=== PATIENT | female | born 1950 | race Caucasian/White ===

== ENCOUNTER 2017-01-19 11:59 | Inpatient (IN) | payer OTHER ==
[2017-01-15 10:22] LABS: HEMATOCRIT 40.8 % (36.0-48.0); HEMOGLOBIN 13.5 g/dL (12.0-16.0)
[2017-01-15 10:35] LABS: BUN (BLOOD UREA NITROGEN) 13 MG/DL (6-23); CALCIUM, SERUM 10.5 MG/DL (8.5-10.4); CHLORIDE, SERUM 105 MMOL/L (96-112); CO2 (CARBON DIOXIDE) 29 MMOL/L (24-34); CREATININE 1.06 MG/DL (0.55-1.02); GFR AFRICAN AMERICAN 62 ML/MIN (>=60); GFR NON AFRICAN AMERICAN 54 ML/MIN (>=60); GLUCOSE, SERUM 105 MG/DL (60-99); POTASSIUM, SERUM 3.6 MMOL/L (3.5-5.3); SODIUM, SERUM 141 MMOL/L (135-148)
--- NOTE | ~2017-01-19 | OP ---
Record Of Operation [facility] [address] [place]. 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 POSTOPERATIVE DIAGNOSIS: Goblet cell carcinoid of the appendix. PROCEDURE: Laparoscopic right colectomy. RESIDENT: Jazmyne. ANESTHESIA: General. ESTIMATED BLOOD LOSS: Less than 50 mL. INDICATION: The patient is a 66-year-old female who presents with a perforated appendicitis and found to have a goblet cell carcinoid and therefore right colectomy was recommended. The risks including bleeding, infection, heart and lung complications, damage to adjacent organs, DVT, anastomotic leak, abdominal wall complications and recuperation among others were discussed with her, and she agreed to proceed. DESCRIPTION OF PROCEDURE: The patient was taken to the operating room and placed in supine position. General anesthesia was induced. The abdomen was prepped and draped. A small incision was made in the umbilicus. A Priyank technique was utilized to place a 12 mm trocar under direct vision initially at right lower quadrant. A 5 mm trocar was placed and this was switched over to the epigastric area and also left lateral and suprapubic 5 mm trocars were placed. The abdomen was evaluated and there was no evidence for metastasis, and the cecum was mobilized identifying the duodenum and then the hepatic flexure was mobilized with cautery. The ileocolic vessel was then isolated and divided between clips and then a wound protector was placed through a small enlargement of the umbilical port site, and the specimen was brought out of that site and additional mesentery was clamped, divided, and ligated towards the terminal ileum and the transverse colon. I then isolated the area with towels and placed a CINDY stapler across the transverse colon. This was fired and I have made a colotomy at the tenia and also enterotomy on the antimesenteric border and a CINDY-75 stapler was placed and fired. The staple lines were offset and an another CINDY stapler was placed and fired to complete the anastomosis. Intersection of staple lines and the crotch was imbricated using 3-0 silk. The gloves and instruments were changed and the area was irrigated and the anastomosis was placed back into the abdominal cavity and the fascial incision was closed with running 0 PDS. Skin was closed with 3-0 Vicryl and the umbilical site was packed with gauze. Dressings were applied. Counts correct. She tolerated the procedure well. RAVI/MITA Record Of [address] [address] NAME: MONSERRAT BRIZUELA : 46 STATUS : ADM IN PAT#: [id number] AGE: 66 ADM/REG DATE : 01/19/17 MR#: [id number] REPORT SERV DATE: 01/19/17 DICTATED BY: ZAMZAM JIANG DATE: 01/19/17 REPORT STATUS : Draft TRANSCRIBED BY: MITA DATE: 01/19/17 Neelam Jiang M.D. / [id number] CC: Neelam Jiang M.D.
--- NOTE | ~2017-01-19 | DS ---
Discharge Summary [facility] [address] [place]. [address] NAME: MONSERRAT BRIZUELA : 46 STATUS : DIS IN PAT#: [id number] AGE: 66 ADM/REG DATE : 01/19/17 MR#: [id number] REPORT SERV DATE: 01/31/17 DICTATED BY: ZAMZAM JIANG DATE: 01/30/17 REPORT STATUS : Draft TRANSCRIBED BY: MODL DATE: 01/30/17 Data Collection from hospitalization DISCHARGE DIAGNOSES: 1. Goblet cell carcinoid of the appendix. 2. Hypertension. 3. Tobacco use. 4. Arthritis. 5. History of right colon cancer. CONSULTATIONS: None. PROCEDURES PERFORMED: Laparoscopic right colectomy, 01/19/2017. PATHOLOGY: Right colon resection-status post appendectomy. No residual goblet cell carcinoid identified. Mesenteric lymph nodes (23)-no metastasis identified. AJCC stage groupings- (by outside report) . DISCHARGE MEDICATIONS: Tylenol 500 mg every six hours as needed, Fosamax 70 mg every seven days, hydrochlorothiazide 25 mg every morning, Sterling 5/325 one tablet every six hours as needed, milk of magnesia 30 mL daily as needed, Percocet 5/325 one tablet every four hours as needed, eye drops twice a day as instructed. CONDITION AT DISCHARGE: Stable. DISPOSITION: The patient was discharged home on a regular diet with activities as instructed. She would follow up with me, 02/02/2017. HOSPITAL COURSE: This is a 66-year-old female, who presented with a perforated appendicitis and was found to have goblet cell carcinoid and therefore, right colectomy was recommended. Treatment options were discussed and she elected to proceed with surgical intervention. She was admitted to the hospital for further evaluation and treatment. Upon admission, she was taken to the operating room, where she underwent the above-mentioned procedure. She tolerated this well and there were no complications. On postop day one, she felt well. Her pain was controlled. Over the next couple of days, she continued to progress. Her abdomen was soft. Discharge planning was performed. She was tolerating some oral intake. On 01/22/2017, she did have a bowel movement. She remained afebrile. Discharge instructions were given. Due to her improved and stable condition, she was discharged home with the above-stated instructions. Information collected by: Becca Esparza I submit the above information as my discharge summary. PEÑA/MIAT Discharge Summary [address] [address] NAME: MONSERRAT BRIZUELA : 46 STATUS : DIS IN PAT#: [id number] AGE: 66 ADM/REG DATE : 01/19/17 MR#: [id number] REPORT SERV DATE: 01/31/17 DICTATED BY: ZAMZAM JIANG DATE: 01/30/17 REPORT STATUS : Draft TRANSCRIBED BY: MITA DATE: 01/30/17 Neelam Jiang M.D. / [id number] CC: Micaela Taylor M.D.
[~2017-01-19 11:59] MED LIST: ACET500CAP PO; ALLEGRA180 PO; CENTRUM PO; FOSAMAX70 MG PO; HYDROCHLOROT25 MG PO; MOMUD PO; NORCO1 TA1 PO; RESTASIS OPH; TAPAZOLE5 MG OR; [UNRECOGNIZED DRUG - OTHER]
[2017-01-20 06:15] LABS: BASOPHILS 0 %; EOSINOPHILS 0 %; HEMOGLOBIN 11.7 g/dL (12.0-16.0); IMMATURE GRANULOCYTES 0.3 %; IMMATURE GRANULOCYTES ABSOLUTE 0.03 10/3/uL (0.0-0.11); LYMPHOCYTES 11.9 %; LYMPHOCYTES ABSOLUTE 1.08 10/3/uL (0.67-4.30); MEAN CORPUS HGB CONC 33.3 g/dL (32.0-36.0); MEAN PLATELET VOLUME 9.9 fL (9.2-13.0); MONOCYTES 6.2 %; MONOCYTES ABSOLUTE 0.56 10/3/uL (0.21-1.20); NEUTROPHILS 81.6 %; NEUTROPHILS ABSOLUTE 7.41 10/3/uL (2.02-8.40); PLATELET COUNT 244 10/3/uL (150-400); RBC DISTRIBUTION WIDTH 14.9 % (12.0-16.0)
[2017-01-20 06:21] LABS: HEMATOCRIT 35.1 % (36.0-48.0); MANUAL DIFF NO %; WHITE BLOOD CELLS 9.1 10/3/uL (4.5-10.5)
[2017-01-20 06:24] LABS: BUN (BLOOD UREA NITROGEN) 10 MG/DL (6-23); CALCIUM, SERUM 9.2 MG/DL (8.5-10.4); CHLORIDE, SERUM 105 MMOL/L (96-112); CO2 (CARBON DIOXIDE) 31 MMOL/L (24-34); CREATININE 0.91 MG/DL (0.55-1.02); GFR AFRICAN AMERICAN 75 ML/MIN (>=60); GFR NON AFRICAN AMERICAN 65 ML/MIN (>=60); GLUCOSE, SERUM 166 MG/DL (60-99); POTASSIUM, SERUM 4.3 MMOL/L (3.5-5.3); SODIUM, SERUM 138 MMOL/L (135-148)
[2017-01-22] MEDS ORDERED: PCET PO (09:16)
== END 2017-01-22 10:01 | disposition home or self-care (01) | DRG 331 ==
LOC: SDC/OF 11:59 → 5SO 18:35
PROVIDERS: Colon & Rectal Surgery
PROC: 3E0T3CZ (ICD-10-PCS; 2017-01-19)
PROC: 0DTF4ZZ Resection of Right Large Intestine, Percutaneous Endoscopic Approach (ICD-10-PCS; principal; 2017-01-19 14:15)
DX: C7A.020 Malignant carcinoid tumor of the appendix (principal); I10 Essential (primary) hypertension; F17.210 Nicotine dependence, cigarettes, uncomplicated; Z88.6 Allergy status to analgesic agent
CPT/HCPCS: 71020; 80048; 85014; 85018; 85025; 88309; 93005; A9270-GY; J0690; J2250; J2405; J2710; J2795; J3010